=== PATIENT | male | born 1970 | race Caucasian/White ===

== ENCOUNTER 2022-03-28 06:33 | Inpatient (IN) | payer BC ==
[2022-03-28] VITALS (10 sets, daily range): BP systolic 105–129
[~2022-03-28] VITALS: Ht 170.2 cm; Wt 64.0 kg
[2022-03-28] MEDS ORDERED: IPRATROPIUM/ALBUTEROL SULFATE 3 ML AMPUL.NEB (DUONEB) INH ONE ×2 (07:00→08:15)
[2022-03-28] MEDS ORDERED: MAGNESIUM SULFATE 50 ML IV ONE ×2 (07:00→07:16)
[2022-03-28] MEDS ORDERED: methylPREDNISolone SOD SUCC/PF 62.5 MG/ML VIAL IVP ONE (07:00)
[2022-03-28] MEDS ORDERED: ALBUTEROL SULFATE 0.083% 2.5 MG/3 ML VIAL.NEB INH ONE (09:30)
[2022-03-28] MEDS ORDERED: IPRATROPIUM BROM 0.5 MG/2.5 ML VIAL.NEB (ATROVENT) INH ONE (09:30)
[2022-03-28] MEDS ORDERED: KETOROLAC TROMETHAMINE 15 MG VIAL IVP ONE (10:30)
[2022-03-28] MEDS ORDERED: PARO40TA PO (10:34)
[2022-03-28] MEDS ORDERED: CLON1TAB12 PO (10:34)
[2022-03-28] MEDS ORDERED: ALBMDI INH (10:34)
[2022-03-28] MEDS ORDERED: ACETAMINOPHEN 325 MG TABLET PO PRN ×3 (10:45→22:30)
[2022-03-28] MEDS ORDERED: POTASSIUM CHLORIDE 20 MEQ TAB.PRT.SR PO PRN ×3 (10:45→22:45)
[2022-03-28] MEDS ORDERED: MUPIROCIN 2% TOPICAL OINTMENT 22 GM NS PRN ×2 (10:45→11:00)
[2022-03-28] MEDS ORDERED: ONDANSETRON HCL 4 MG/2 ML VIAL IVP PRN ×3 (10:45→22:45)
[2022-03-28] MEDS ORDERED: MAGNESIUM SULFATE 50 ML IV PRN ×3 (10:45→22:45)
[2022-03-28] MEDS ORDERED: DOCUSATE SODIUM 100 MG CAPSULE PO PRN ×3 (10:45→22:45)
[2022-03-28] MEDS ORDERED: ZOLPIDEM TARTRATE 5 MG TABLET PO PRN ×2 (10:45→11:00)
[2022-03-28] MEDS ORDERED: MORPHINE 2 MG/ML INJ. SYRINGE IVP PRN ×6 (10:45→22:45)
[2022-03-28] MEDS ORDERED: LORazepam 2 MG/ML VIAL IVP PRN ×3 (10:45→22:45)
[2022-03-28] MEDS ORDERED: IPRATROPIUM/ALBUTEROL SULFATE 3 ML AMPUL.NEB (DUONEB) INH PRN ×2 (10:45→22:45)
[2022-03-28 10:56] LABS: BASOPHILS % (AUTO) 0.4 % (0.0-2.0); EOSINOPHILS # (AUTO) 0.4 K/uL (0.0-0.4); EOSINOPHILS % (AUTO) 4.4 % (0.0-4.0); HEMOGLOBIN 14.6 g/dL (14.0-18.0); LYMPHOCYTES # (AUTO) 0.7 K/uL (1.0-5.5); LYMPHOCYTES % (AUTO) 7.4 % (20.5-51.5); MEAN CORPUSCULAR HEMOGLOBIN 30 pg (27-31); MEAN CORPUSCULAR HGB CONC 34 % (32-36); MEAN CORPUSCULAR VOLUME 88 fL (79.0-98.0); MONOCYTES # (AUTO) 0.1 K/uL (0.0-1.0); NEUTROPHILS # (AUTO) 7.8 K/uL (1.8-7.7); NEUTROPHILS % (AUTO) 86.8 % (40.0-70.0); PLATELET COUNT (AUTO) 224 K/uL (130-430); RED BLOOD CELL COUNT(AUTO) 4.88 MIL/uL (4.2-6.2); RED CELL DISTRIBUTION WIDTH 13.6 % (9.0-15.0)
[2022-03-28] MEDS ORDERED: clonazePAM 0.5 MG TABLET PO ONE (11:00)
[2022-03-28] MEDS ORDERED: NACL 0.9% 1,000 ML IV SCH (11:00)
[2022-03-28 11:13] LABS: ANION GAP 7 (5-15); CALCIUM 7.9 mg/dL (8.4-11.0); CHLORIDE 104 mmol/L (98-107); CREATININE 0.97 mg/dL (0.55-1.30); GLUCOSE 141 mg/dL (70-99); POTASSIUM 4.1 mmol/L (3.5-5.1); SODIUM SERUM 138 mmol/L (136-145); UREA NITROGEN, BLOOD 13 mg/dL (8-21)
[2022-03-28 11:18] LABS: ALANINE AMINOTRANSFERASE 19 U/L (12-78); ALBUMIN 3.6 g/dL (3.4-4.8); ASPARTATE AMINOTRANSFERASE 18 U/L (10-37); TOTAL BILIRUBIN 0.3 mg/dL (0.0-1.0)
[2022-03-28 11:26] LABS: GFR AFRICAN AMERICAN 106 mL/min (>90)
[2022-03-28] MEDS ORDERED: IPRATROPIUM/ALBUTEROL SULFATE 3 ML AMPUL.NEB (DUONEB) ONE ×2 (11:38→17:27)
[2022-03-28] MEDS ORDERED: LORazepam 2 MG/ML VIAL ONE (20:35)
[2022-03-28] MEDS ORDERED: METHYLPREDNISOLONE SOD SUCC 40 MG/ML VIAL ONE (20:36)
[2022-03-28] MEDS ORDERED: METHYLPREDNISOLONE SOD SUCC 40 MG/ML VIAL IVP SCH (21:00)
[2022-03-28] MEDS ORDERED: METOPROLOL TARTRATE 25 MG TABLET PO ONE (21:30)
[2022-03-28] MEDS: ALBUTEROL SULFATE 0.083% 2.5 MG/3 ML VIAL.NEB INH SCH (22:35)
[2022-03-28] MEDS: NACL 0.9% 1,000 ML IV SCH (22:45)
[2022-03-29] VITALS (14 sets, daily range): BP systolic 106–157
[2022-03-29] MEDS: ALBUTEROL SULFATE 0.083% 2.5 MG/3 ML VIAL.NEB INH SCH ×4 (04:19→20:01)
[2022-03-29 06:10] LABS: BASOPHILS % (AUTO) 0.3 % (0.0-2.0); EOSINOPHILS % (AUTO) 0.1 % (0.0-4.0); HEMATOCRIT 40.3 % (36-54); HEMOGLOBIN 13.7 g/dL (14.0-18.0); LYMPHOCYTES # (AUTO) 0.8 K/uL (1.0-5.5); LYMPHOCYTES % (AUTO) 6.2 % (20.5-51.5); MEAN CORPUSCULAR HEMOGLOBIN 30 pg (27-31); MEAN CORPUSCULAR HGB CONC 34 % (32-36); MEAN CORPUSCULAR VOLUME 88 fL (79.0-98.0); MONOCYTES # (AUTO) 0.8 K/uL (0.0-1.0); NEUTROPHILS # (AUTO) 11.8 K/uL (1.8-7.7); NEUTROPHILS % (AUTO) 87.4 % (40.0-70.0); PLATELET COUNT (AUTO) 261 K/uL (130-430); RED BLOOD CELL COUNT(AUTO) 4.56 MIL/uL (4.2-6.2); RED CELL DISTRIBUTION WIDTH 13.8 % (9.0-15.0); WHITE BLOOD COUNT (AUTO) 13.4 K/uL (4.8-10.8)
[2022-03-29 06:39] LABS: CALCIUM 7.8 mg/dL (8.4-11.0); CREATININE 0.75 mg/dL (0.55-1.30); POTASSIUM 4.4 mmol/L (3.5-5.1)
[2022-03-29] MEDS: METHYLPREDNISOLONE SOD SUCC 40 MG/ML VIAL IVP SCH ×2 (08:50→20:56)
[2022-03-29] MEDS: PARoxetine HCL 20 MG TABLET PO SCH (08:50)
[2022-03-29] MEDS ORDERED: PARoxetine HCL 20 MG TABLET PO SCH (09:00)
[2022-03-29] MEDS: NACL 0.9% 1,000 ML IV SCH ×2 (12:31→20:53)
[2022-03-29] MEDS: ZOLPIDEM TARTRATE 5 MG TABLET PO PRN (21:03)
[2022-03-30] VITALS (24 sets, daily range): BP systolic 113–167
[2022-03-30] MEDS: ALBUTEROL SULFATE 0.083% 2.5 MG/3 ML VIAL.NEB INH SCH ×4 (01:00→19:44)
[2022-03-30 06:22] LABS: BASOPHILS % (AUTO) 0.1 % (0.0-2.0); EOSINOPHILS % (AUTO) 0.1 % (0.0-4.0); HEMATOCRIT 39.6 % (36-54); HEMOGLOBIN 13.4 g/dL (14.0-18.0); LYMPHOCYTES # (AUTO) 0.6 K/uL (1.0-5.5); LYMPHOCYTES % (AUTO) 7.2 % (20.5-51.5); MEAN CORPUSCULAR HEMOGLOBIN 30 pg (27-31); MEAN CORPUSCULAR HGB CONC 34 % (32-36); MEAN CORPUSCULAR VOLUME 88 fL (79.0-98.0); MONOCYTES # (AUTO) 0.4 K/uL (0.0-1.0); MONOCYTES % (AUTO) 4.6 % (1.7-9.3); NEUTROPHILS # (AUTO) 6.9 K/uL (1.8-7.7); PLATELET COUNT (AUTO) 235 K/uL (130-430); RED CELL DISTRIBUTION WIDTH 14.2 % (9.0-15.0); WHITE BLOOD COUNT (AUTO) 7.8 K/uL (4.8-10.8)
[2022-03-30 06:35] LABS: CALCIUM 7.5 mg/dL (8.4-11.0); CREATININE 0.66 mg/dL (0.55-1.30); POTASSIUM 4.2 mmol/L (3.5-5.1)
[2022-03-30] MEDS: METHYLPREDNISOLONE SOD SUCC 40 MG/ML VIAL IVP SCH ×2 (09:01→21:27)
[2022-03-30] MEDS: PARoxetine HCL 20 MG TABLET PO SCH (09:02)
[2022-03-30] MEDS: NACL 0.9% 1,000 ML IV SCH ×2 (09:20→22:18)
[2022-03-30] MEDS ORDERED: iohexoL 350 mgI/mL, 100 ML INFUS..BTL IV ONE (11:53)
[2022-03-30] MEDS ORDERED: clonazePAM 0.5 MG TABLET PO ONE (17:30)
[2022-03-31] VITALS (15 sets, daily range): BP systolic 119–166
[2022-03-31] MEDS: ZOLPIDEM TARTRATE 5 MG TABLET PO PRN (00:38)
[2022-03-31] MEDS: ALBUTEROL SULFATE 0.083% 2.5 MG/3 ML VIAL.NEB INH SCH ×3 (01:14→15:32)
[2022-03-31 06:34] LABS: BASOPHILS % (AUTO) 0.1 % (0.0-2.0); HEMOGLOBIN 13.5 g/dL (14.0-18.0); LYMPHOCYTES # (AUTO) 0.6 K/uL (1.0-5.5); LYMPHOCYTES % (AUTO) 10.1 % (20.5-51.5); MEAN CORPUSCULAR HEMOGLOBIN 30 pg (27-31); MEAN CORPUSCULAR HGB CONC 34 % (32-36); MEAN CORPUSCULAR VOLUME 88 fL (79.0-98.0); MONOCYTES # (AUTO) 0.5 K/uL (0.0-1.0); MONOCYTES % (AUTO) 7.7 % (1.7-9.3); NEUTROPHILS # (AUTO) 5.1 K/uL (1.8-7.7); NEUTROPHILS % (AUTO) 82.1 % (40.0-70.0); PLATELET COUNT (AUTO) 237 K/uL (130-430); RED BLOOD CELL COUNT(AUTO) 4.56 MIL/uL (4.2-6.2); RED CELL DISTRIBUTION WIDTH 13.8 % (9.0-15.0); WHITE BLOOD COUNT (AUTO) 6.2 K/uL (4.8-10.8)
[2022-03-31 06:40] LABS: CALCIUM 7.7 mg/dL (8.4-11.0); CREATININE 0.71 mg/dL (0.55-1.30)
[2022-03-31] MEDS: PARoxetine HCL 20 MG TABLET PO SCH (09:33)
[2022-03-31] MEDS: METHYLPREDNISOLONE SOD SUCC 40 MG/ML VIAL IVP SCH (09:33)
[2022-03-31] MEDS ORDERED: predniSONE 20 MG TABLET PO ONE (10:45)
[2022-03-31] MEDS: NACL 0.9% 1,000 ML IV SCH ×2 (14:22→22:11)
[2022-03-31] MEDS ORDERED: clonazePAM 0.5 MG TABLET PO SCH (21:00)
[2022-03-31] MEDS: predniSONE 20 MG TABLET PO SCH (22:09)
[2022-04-01] MEDS: ALBUTEROL SULFATE 0.083% 2.5 MG/3 ML VIAL.NEB INH SCH ×3 (00:17→15:20)
[2022-04-01 02:00] VITALS: BP_SYST 139
[2022-04-01 07:43] LABS: BASOPHILS % (AUTO) 0.2 % (0.0-2.0); EOSINOPHILS % (AUTO) 0.1 % (0.0-4.0); HEMATOCRIT 41.6 % (36-54); HEMOGLOBIN 14.3 g/dL (14.0-18.0); LYMPHOCYTES % (AUTO) 12.6 % (20.5-51.5); MEAN CORPUSCULAR HEMOGLOBIN 30 pg (27-31); MEAN CORPUSCULAR HGB CONC 34 % (32-36); MEAN CORPUSCULAR VOLUME 88 fL (79.0-98.0); MONOCYTES # (AUTO) 0.8 K/uL (0.0-1.0); MONOCYTES % (AUTO) 9.1 % (1.7-9.3); NEUTROPHILS # (AUTO) 6.5 K/uL (1.8-7.7); PLATELET COUNT (AUTO) 223 K/uL (130-430); RED BLOOD CELL COUNT(AUTO) 4.72 MIL/uL (4.2-6.2); RED CELL DISTRIBUTION WIDTH 13.5 % (9.0-15.0); WHITE BLOOD COUNT (AUTO) 8.3 K/uL (4.8-10.8)
[2022-04-01 07:45] VITALS: BP_SYST 134
[2022-04-01 08:00] VITALS: BP_SYST 134
[2022-04-01 08:13] LABS: CALCIUM 8.1 mg/dL (8.4-11.0); CREATININE 0.77 mg/dL (0.55-1.30); POTASSIUM 4.4 mmol/L (3.5-5.1)
[2022-04-01] MEDS: predniSONE 20 MG TABLET PO SCH (09:14)
[2022-04-01] MEDS: PARoxetine HCL 20 MG TABLET PO SCH (09:14)
[2022-04-01] MEDS ORDERED: LEVO500T90 PO (10:39)
[2022-04-01] MEDS ORDERED: PRED20TA PO (10:39)
[2022-04-01] MEDS ORDERED: BUDE6.9H INH (10:44)
[2022-04-01 12:05] VITALS: BP_SYST 125
[2022-04-01] MEDS: NACL 0.9% 1,000 ML IV SCH (14:01)
[2022-04-01 15:31] VITALS: BP_SYST 131
[2022-04-01 16:47] VITALS: BP_SYST 131
== END 2022-04-01 17:57 | disposition home or self-care (01) | DRG 189 ==
LOC: SED 06:33 → SMU 10:51 → UNDOADMIN 10:51 → SMU 11:36 → SIC 12:26 → OBSVTOIN 12:26 → SIC 15:00 → STU 03-31 21:59
PROVIDERS: ADMIT General Practice; ATTEND General Practice
PROC: 5A09357 Assistance with Respiratory Ventilation, Less than 24 Consecutive Hours, Continuous Positive Airway Pressure (ICD-10-PCS; principal; 2022-03-28)
DX: J96.01 Acute respiratory failure with hypoxia (principal); J45.51 Severe persistent asthma with (acute) exacerbation; I10 Essential (primary) hypertension; Z20.822 Contact with and (suspected) exposure to COVID-19; Z79.52 Long term (current) use of systemic steroids; Z79.899 Other long term (current) drug therapy
CPT/HCPCS: 36415; 36600; 71045; 71275; 76376; 80048; 80053; 82785; 82803-TC; 83735; 84484; 85025; 86606; 87081; 87305; 93005; 94640; 94660; 96365; 96366; 96375; 99291; G0378; J1030; J1885; J1956; J2060; J2930; J3475; J7512; J7613; Q9967